=== PATIENT | male | born 1945 | race Caucasian/White ===

== ENCOUNTER 2021-04-15 00:56 | Inpatient (IN) | payer MEDICARE, OTHER ==
[2021-04-15 01:31] LABS: #Basophils 0.1 thou/uL (0.0-0.2); #Eosinphils 0.3 thou/uL (0.0-0.7); #Lymphocytes 1.2 thou/uL (1.20-3.40); #Monocytes 0.4 thou/uL (0.11-0.59); #Neutrophils 4.3 thou/uL (1.40-6.50); %Eosinophils 4.1 % (0.0-10.0); %Lymphocytes 19.8 % (21.0-51.0); %Monocytes 5.7 % (0.0-10.0); %Neutrophils 69.4 % (42.0-75.0); Mean Corpuscular HGB CONC 32.9 g/dL (32.0-36.0); Mean Corpuscular Hemoglobin 29.8 pg (27.0-31.0); Mean Corpuscular Volume 90.5 fL (78.0-98.0); Mean Platelet Volume 8.1 fL (7.4-10.4); Platelet Count 263 thou/uL (130-400); Red Blood Cell (RBC) Count 5.04 mill/uL (4.70-6.10); White Blood Cell (WBC) Count 6.1 thou/uL (4.8-10.8)
[2021-04-15 01:55] LABS: ALT (SGPT) 13 U/L (8-55); AST (SGOT) 14 U/L (5-34); Albumin 3.7 g/dL (3.4-4.8); Alkaline Phosphatase 67 U/L (40-110); Anion Gap 13 mmol/L (10-20); BUN (Urea Nitrogen) 18 mg/dL (8.4-25.7); Bilirubin, Total 0.8 mg/dL (0.2-1.2); Calc. Creatinine Clearance 0 mL/min (70-130); Calcium 9.6 mg/dL (7.8-10.44); Carbon Dioxide 25 mmol/L (23-31); Chloride 103 mmol/L (98-107); Globulin 2.9 g/dL (2.4-3.5); Glucose 244 mg/dL (83-110); Potassium 4.1 mmol/L (3.5-5.1); Protein, Total 6.6 g/dL (5.8-8.1); Sodium 137 mmol/L (136-145)
[2021-04-15] MEDS ORDERED: Aspirin 325 MG TAB ONE (03:21)
[2021-04-15 05:43] LABS: SARS-CoV-2 NAA Rapid Test Not Detected (NotDetected)
[2021-04-15] MEDS ORDERED: Dextrose 50% Abboject 50 ML SYRINGE SLOW IVP PRN ×2 (10:39→21:54)
[2021-04-15] MEDS ORDERED: Dextrose 5% in Water 1,000 ML IV PRN ×2 (10:39→21:54)
[2021-04-15] MEDS ORDERED: Enoxaparin Sodium 100 MG/ML SYRINGE SC SCH (12:00)
[2021-04-15] MEDS ORDERED: Carvedilol 3.125 MG TAB PO SCH (12:00)
[2021-04-15] MEDS ORDERED: Furosemide 40 MG TAB PO SCH (12:00)
[2021-04-15] MEDS ORDERED: Lisinopril 20 MG TAB PO SCH (12:00)
[2021-04-15] MEDS ORDERED: Furosemide 40 MG TAB ONE (12:09)
[2021-04-15] MEDS ORDERED: Lisinopril 10 MG TAB ONE (12:09)
[2021-04-15] MEDS ORDERED: Enoxaparin Sodium 100 MG/ML SYRINGE ONE (12:09)
[2021-04-15 15:09] LABS: Troponin I 5.421 ng/mL (< 0.028)
[2021-04-15 15:43] VITALS: BMI 31.3
[2021-04-15] MEDS: Enoxaparin Sodium 100 MG/ML SYRINGE SC SCH (20:31)
[2021-04-15] MEDS: Carvedilol 3.125 MG TAB PO SCH (20:32)
[2021-04-15] MEDS: Atorvastatin Calcium 40 MG TAB PO SCH (20:32)
[2021-04-16 04:36] LABS: #Basophils 0.1 thou/uL (0.0-0.2); #Eosinphils 0.3 thou/uL (0.0-0.7); #Lymphocytes 1.4 thou/uL (1.20-3.40); #Monocytes 0.6 thou/uL (0.11-0.59); #Neutrophils 4.2 thou/uL (1.40-6.50); %Basophils 0.9 % (0.0-1.0); %Eosinophils 3.9 % (0.0-10.0); %Lymphocytes 20.9 % (21.0-51.0); %Monocytes 9.6 % (0.0-10.0); %Neutrophils 64.7 % (42.0-75.0); Hemoglobin 14.4 g/dL (14.0-18.0); Mean Corpuscular Hemoglobin 29.7 pg (27.0-31.0); Mean Platelet Volume 8.2 fL (7.4-10.4); Platelet Count 250 thou/uL (130-400); RBC Distribution Width 13.8 % (11.5-14.5); Red Blood Cell (RBC) Count 4.84 mill/uL (4.70-6.10); White Blood Cell (WBC) Count 6.5 thou/uL (4.8-10.8)
[2021-04-16 04:54] LABS: Anion Gap 13 mmol/L (10-20); BUN (Urea Nitrogen) 23 mg/dL (8.4-25.7); Calc. Creatinine Clearance 56 mL/min (70-130); Calcium 9.2 mg/dL (7.8-10.44); Carbon Dioxide 28 mmol/L (23-31); Cardiac Risk 3.5 (Less than 4.5); Chloride 101 mmol/L (98-107); Cholesterol 138 mg/dl (< 200 Desired); Glucose 315 mg/dL (83-110); HDL Cholesterol 40 mg/dL (>60 Neg Risk); LDL Cholesterol, Calculated 67 mg/dL; Potassium 4.2 mmol/L (3.5-5.1); Sodium 138 mmol/L (136-145); Triglycerides 153 mg/dL (Less than 150)
[2021-04-16] MEDS: HumaLOG 300 UNITS/3 ML VIAL SC PRN ×4 (06:15→21:33)
[2021-04-16] MEDS ORDERED: Furosemide 40 MG TAB PO SCH (07:30)
[2021-04-16] MEDS ORDERED: FLU VACC QS2021-22(65YR UP)/PF 240 MCG/0.7 ML SYRINGE IM ONE (09:00)
[2021-04-16] MEDS ORDERED: Lisinopril 20 MG TAB PO SCH (09:00)
[2021-04-16] MEDS: Aspirin 325 mg Enteric Coated Tablet PO SCH (09:29)
[2021-04-16] MEDS: Tamsulosin HCl 0.4 MG CAP PO SCH (09:29)
[2021-04-16] MEDS: Carvedilol 3.125 MG TAB PO SCH ×2 (09:29→21:33)
[2021-04-16] MEDS: Dutasteride 0.5 MG CAP PO SCH (09:30)
[2021-04-16] MEDS: Enoxaparin Sodium 100 MG/ML SYRINGE SC SCH (09:31)
[2021-04-16] MEDS ORDERED: Communication Order-Pharmacy FS SCH (15:30)
[2021-04-16 16:33] LABS: Troponin I 3.234 ng/mL (< 0.028)
[2021-04-16] MEDS: Sodium Chloride 0.9% 1,000 ML IV SCH (18:40)
[2021-04-16] MEDS: Atorvastatin Calcium 40 MG TAB PO SCH (21:33)
[2021-04-17 05:06] LABS: #Eosinphils 0.3 thou/uL (0.0-0.7); #Lymphocytes 1.1 thou/uL (1.20-3.40); #Monocytes 0.5 thou/uL (0.11-0.59); #Neutrophils 4.2 thou/uL (1.40-6.50); %Basophils 0.6 % (0.0-1.0); %Eosinophils 4.4 % (0.0-10.0); %Lymphocytes 17.5 % (21.0-51.0); %Monocytes 7.9 % (0.0-10.0); %Neutrophils 69.7 % (42.0-75.0); Mean Corpuscular HGB CONC 32.8 g/dL (32.0-36.0); Mean Corpuscular Hemoglobin 29.8 pg (27.0-31.0); Mean Corpuscular Volume 90.7 fL (78.0-98.0); Mean Platelet Volume 8.4 fL (7.4-10.4); Platelet Count 235 thou/uL (130-400); RBC Distribution Width 13.8 % (11.5-14.5); Red Blood Cell (RBC) Count 4.71 mill/uL (4.70-6.10); White Blood Cell (WBC) Count 6.1 thou/uL (4.8-10.8)
[2021-04-17] MEDS: Dutasteride 0.5 MG CAP PO SCH (05:11)
[2021-04-17] MEDS: Carvedilol 3.125 MG TAB PO SCH ×2 (05:11→20:54)
[2021-04-17] MEDS: Aspirin 325 mg Enteric Coated Tablet PO SCH (05:11)
[2021-04-17] MEDS: Sodium Chloride 0.9% 1,000 ML IV SCH ×2 (05:12→15:36)
[2021-04-17] MEDS: Tamsulosin HCl 0.4 MG CAP PO SCH (05:12)
[2021-04-17 05:29] LABS: Anion Gap 12 mmol/L (10-20); BUN (Urea Nitrogen) 22 mg/dL (8.4-25.7); Calc. Creatinine Clearance 66 mL/min (70-130); Calcium 8.9 mg/dL (7.8-10.44); Carbon Dioxide 25 mmol/L (23-31); Chloride 103 mmol/L (98-107); Glucose 254 mg/dL (83-110); Potassium 3.9 mmol/L (3.5-5.1); Sodium 136 mmol/L (136-145)
[2021-04-17 05:36] LABS: Critical Call Chem Troponin I RESULT DECREASING; Troponin I 2.663 ng/mL (< 0.028)
[2021-04-17] MEDS ORDERED: Sodium Chloride 0.9% 1,000 ML IV SCH (06:00)
[2021-04-17] MEDS ORDERED: Lidocaine 1% (PF) 30 ML VIAL ONE (08:37)
[2021-04-17] MEDS ORDERED: Iopamidol 370 76% 100 ML VIAL ONE (08:40)
[2021-04-17] MEDS ORDERED: Midazolam HCl 2 mg/2 ml Vial ONE (08:49)
[2021-04-17] MEDS ORDERED: Fentanyl 100 MCG/2 ML VIAL ONE (08:59)
[2021-04-17] MEDS ORDERED: Nitroglycerin 4.9 GM Bottle ONE (09:38)
[2021-04-17] MEDS ORDERED: Sodium Chloride 0.9% 200 ML IV PRN (09:42)
[2021-04-17] MEDS ORDERED: Acetaminophen/Codeine 30-300mg Tablet PO PRN ×2 (09:42)
[2021-04-17] MEDS ORDERED: Nitroglycerin 0.4 MG TAB (25 Tab Bottle) SL PRN (09:42)
[2021-04-17] MEDS ORDERED: Aspirin 325 mg Enteric Coated Tablet PO SCH (09:42)
[2021-04-17] MEDS ORDERED: Aspirin 81 mg Enteric Coated Tablet PO SCH (10:00)
[2021-04-17] MEDS ORDERED: TICAGRELOR 90 MG TABLET PO SCH ×2 (10:00→10:30)
[2021-04-17] MEDS: HumaLOG 300 UNITS/3 ML VIAL SC PRN ×2 (18:29→20:55)
[2021-04-17] MEDS: Atorvastatin Calcium 40 MG TAB PO SCH (20:54)
[2021-04-17] MEDS: TICAGRELOR 90 MG TABLET PO SCH (20:55)
[2021-04-18] MEDS: Sodium Chloride 0.9% 1,000 ML IV SCH ×2 (03:59→11:11)
[2021-04-18 05:00] LABS: #Eosinphils 0.3 thou/uL (0.0-0.7); #Lymphocytes 1.2 thou/uL (1.20-3.40); #Monocytes 0.5 thou/uL (0.11-0.59); #Neutrophils 3.7 thou/uL (1.40-6.50); %Basophils 0.6 % (0.0-1.0); %Eosinophils 4.6 % (0.0-10.0); %Lymphocytes 20.4 % (21.0-51.0); %Monocytes 8.6 % (0.0-10.0); %Neutrophils 65.7 % (42.0-75.0); Hemoglobin 13.2 g/dL (14.0-18.0); Mean Corpuscular HGB CONC 31.9 g/dL (32.0-36.0); Mean Corpuscular Hemoglobin 28.8 pg (27.0-31.0); Mean Corpuscular Volume 90.4 fL (78.0-98.0); Mean Platelet Volume 8.2 fL (7.4-10.4); Platelet Count 240 thou/uL (130-400); RBC Distribution Width 13.9 % (11.5-14.5); Red Blood Cell (RBC) Count 4.58 mill/uL (4.70-6.10); White Blood Cell (WBC) Count 5.6 thou/uL (4.8-10.8)
[2021-04-18 05:20] LABS: Anion Gap 11 mmol/L (10-20); BUN (Urea Nitrogen) 19 mg/dL (8.4-25.7); Calc. Creatinine Clearance 70 mL/min (70-130); Calcium 8.7 mg/dL (7.8-10.44); Carbon Dioxide 24 mmol/L (23-31); Chloride 104 mmol/L (98-107); Glucose 257 mg/dL (83-110); Potassium 3.9 mmol/L (3.5-5.1); Sodium 135 mmol/L (136-145)
[2021-04-18] MEDS: HumaLOG 300 UNITS/3 ML VIAL SC PRN ×2 (06:01→10:37)
[2021-04-18] MEDS ORDERED: Aspirin 81 mg Enteric Coated Tablet PO SCH (09:00)
[2021-04-18] MEDS ORDERED: TICAGRELOR 90 MG TABLET PO SCH (09:41)
[2021-04-18] MEDS: Carvedilol 3.125 MG TAB PO SCH (09:43)
[2021-04-18] MEDS: Tamsulosin HCl 0.4 MG CAP PO SCH (09:43)
[2021-04-18] MEDS: Dutasteride 0.5 MG CAP PO SCH (09:43)
[2021-04-18] MEDS: TICAGRELOR 90 MG TABLET PO SCH (09:44)
[2021-04-18 10:37] VITALS: TEMP 97.9
[2021-04-18 10:40] VITALS: BP 167/73
== END 2021-04-18 11:26 | disposition home or self-care (01) | DRG 281 ==
LOC: ERS 00:56 → ERHOLD 03:32 → 2NO 15:35 → OBSVTOIN 20:23
PROVIDERS: ADMIT Student in an Organized Health Care Education/Training Program; ATTEND Internal Medicine
PROC: 4A023N7 Measurement of Cardiac Sampling and Pressure, Left Heart, Percutaneous Approach (ICD-10-PCS; principal; 2021-04-17)
PROC: B2111ZZ Fluoroscopy of Multiple Coronary Arteries using Low Osmolar Contrast (ICD-10-PCS; 2021-04-17)
PROC: B2151ZZ Fluoroscopy of Left Heart using Low Osmolar Contrast (ICD-10-PCS; 2021-04-17)
DX: I21.4 Non-ST elevation (NSTEMI) myocardial infarction (principal); E87.1 Hypo-osmolality and hyponatremia; Z20.822 Contact with and (suspected) exposure to COVID-19; I25.10 Atherosclerotic heart disease of native coronary artery without angina pectoris; E11.9 Type 2 diabetes mellitus without complications; I10 Essential (primary) hypertension; N40.0 Benign prostatic hyperplasia without lower urinary tract symptoms; Z95.5 Presence of coronary angioplasty implant and graft; Z79.82 Long term (current) use of aspirin; Z79.899 Other long term (current) drug therapy
CPT/HCPCS: 36415; 36416; 71045; 80048; 80053; 80061; 82553; 84484; 85025; 93005; 93306; 93458; 93798; 96372; 99152; 99153; G0378; J1650; J1815; J2001; J2250; J3010; J7050; Q9967; U0002